=== PATIENT | female | born 1945 | race Caucasian/White ===

== ENCOUNTER 2019-11-22 02:33 | Observation (INO) | payer MEDICARE, OTHER, SELFPAY ==
[2019-11-22] VITALS (15 sets, daily range): BP systolic 127–153; BP diastolic 79–92; PULSE 77–92; RESP 15–20; TEMP 36.4–36.9; O2SAT 90–98; BMI 46.1
--- NOTE | 2019-11-22 02:42 | XRR_ITS ---
PROCEDURE INFORMATION: Exam: XR Chest, 1 View Exam date and time: 11/22/2019 2:47 AM Age: 73 years old Clinical indication: Injury or trauma; Initial encounter; Blunt trauma (contusions or hematomas); Patient HX: Fall this a. M. C/O severe shoulder pain. ; Additional info: Fall/injury TECHNIQUE: Imaging protocol: XR of the chest Views: 1 view. COMPARISON: No relevant prior studies available. FINDINGS: Lungs: No consolidation. Pleural space: No pleural effusion. No pneumothorax. Heart/Mediastinum: Cardiomegaly. Bones/joints: Anterior left shoulder dislocation with comminuted fracture of the proximal left humerus. XR/XR chest 1V portable [id number] IMPRESSION: 1. Clear lungs. 2. Anterior left shoulder dislocation with comminuted fracture of the proximal left humerus.
--- NOTE | 2019-11-22 02:42 | XRR_ITS ---
PROCEDURE INFORMATION: Exam: XR Left Shoulder Exam date and time: 11/22/2019 2:47 AM Age: 73 years old Clinical indication: Injury or trauma; Initial encounter; Blunt trauma (contusions or hematomas; Left; Patient HX: Fall this a. M. C/O severe shoulder pain. ; Additional info: Fall/injury TECHNIQUE: Imaging protocol: XR Left shoulder. Views: 2 or more views. COMPARISON: No relevant prior studies available. FINDINGS: Bones/joints: Comminuted fracture of the humeral head with anterior left shoulder dislocation. Soft tissues: No radiopaque foreign body. XR/XR shoulder LT min 2V* [id number] IMPRESSION: Comminuted fracture of the humeral head with anterior left shoulder dislocation.
--- NOTE | 2019-11-22 02:42 | XRR_ITS ---
PROCEDURE INFORMATION: Exam: XR Left Humerus Exam date and time: 11/22/2019 2:47 AM Age: 73 years old Clinical indication: Injury or trauma; Initial encounter; Blunt trauma (contusions or hematomas; Left; Patient HX: Fall this a. M. C/O severe shoulder pain. ; Additional info: Fall/injury TECHNIQUE: Imaging protocol: XR Left humerus Views: 2 or more views. COMPARISON: No relevant prior studies available. FINDINGS: Bones/joints: Comminuted left humeral head fracture. Soft tissues: No edema. XR/[place] [id number] IMPRESSION: Comminuted left humeral head fracture.
--- NOTE | 2019-11-22 02:43 | CTR_ITS ---
PROCEDURE INFORMATION: Exam: CT Head Without Contrast Exam date and time: 11/22/2019 2:47 AM Age: 73 years old Clinical indication: Injury or trauma; Patient HX: Fall this a. M. Patient on blood thinners; Additional info: Fall/injury/anticoagulated TECHNIQUE: Imaging protocol: Computed tomography of the head without contrast. Radiation optimization: All CT scans at this facility use at least one of these dose optimization techniques: automated exposure control; mA and/or kV adjustment per patient size (includes targeted exams where dose is matched to clinical indication); or iterative reconstruction. COMPARISON: No relevant prior studies available. RADIATION DOSE METRICS: Total DLP (mGy-cm): 975.76 FINDINGS: Brain: No hemorrhage. No edema, mass effect or midline shift. Periventricular and deep white matter hypodensities compatible with chronic microvascular ischemic changes. Sims-white matter differentiation is preserved. Ventricles: No ventriculomegaly. Bones/joints: No acute fracture. Sinuses: No acute sinusitis. Mastoid air cells: No mastoid effusion. Soft tissues: Unremarkable. CT/CT head wo con* [id number] IMPRESSION: No acute intracranial abnormality. Radiation Dose CTDIVOL = (mGy): DLP = 975.76 (mGy-cm)
--- NOTE | 2019-11-22 02:59 | W.ED.FALL ---
HPI - Fall General: Chief Complaint: Fall Stated Complaint: fall Time Seen by Provider: 11/22/19 02:38 Source: patient, family and EMS Mode of arrival: EMS Limitations: no limitations History of Present Illness: HPI Narrative: Ms. Arredondo is a nice 73-year-old female who comes in complaining of left shoulder pain. She states she got up tonight to go to the bathroom and then tripped on the dog dish causing her to fall down and landed on her left shoulder. She had immediate pain thereafter and has not been able to resolve the pain. She is unable to move her shoulder without extreme pain. She hit her head but denies any loss of consciousness. She denies any neck pain. She denies any pain to her chest or torso. She states all of her pain is located in her left shoulder. The patient is on Eliquis. Associated symptoms-after fall: Denies abdominal pain, chest pain, confusion, difficulty walking, headache(s), hematuria, lightheadedness, neck pain or vertigo Review of Systems Const: Denies: fever(s), chills, body aches, fatigue, malaise or diaphoresis Eyes: Denies: change in vision, blurry vision, blind spots, photophobia, eye discharge or eye redness ENMT: Denies: throat pain, odynophagia, hoarseness, swelling of lips/tongue, oral sores, ear or mastoid pain, ear discharge, change in hearing or nasal discharge Card: Denies: chest pain, palpitations, irregular heart rhythm, edema, lightheadedness, syncope, pre-syncope, dyspnea on exertion or orthopnea Resp: Denies: dyspnea, productive cough, non-productive cough, wheezing, hemoptysis or chest congestion GI: Denies: abdominal pain, nausea, vomiting, hematemesis, coffee ground emesis, heartburn, diarrhea, constipation, GI cramping, hematochezia or melena : Denies: flank pain, dysuria, urinary frequency, urinary urgency or hematuria Musc: Reports: joint pain; Denies: neck pain, back pain, extremity pain, extremity swelling, joint swelling, joint redness, joint warmth or joint stiffness Skin/Breast: Denies: rash, pruritus, erythema, skin tenderness or jaundice Neuro: Denies: headache(s), numbness in extremities, weakness in extremities, sensory changes, lack of coordination, difficulty walking, dizziness, vertigo, confusion, Slurred speech present or seizure-like activity Gilson/Lymph: Denies: easy bruising, easy bleeding, petechiae, purpura or enlarged lymph nodes All/Imm: Denies: urticaria, throat swelling, tongue swelling, facial swelling or acute wheezing PFSH ED PFSH: Medical History (Updated 11/22/19 @ 04:33 by Veronica Valera) Breast cancer Colostomy present Diverticulosis Hypertension Hypothyroidism Pulmonary emboli Social History Smoking and tobacco status: never smoked Physical Exam Const: COMMON NORMALS: no acute distress, patient oriented x3, no limitations, healthy appearing and well nourished GENERAL APPEARANCE: cooperative, well kempt and well developed HENMT: COMMON NORMALS: normocephalic, atraumatic, external ears normal, EAC's normal and Normal external nose present HEAD & SCALP: normal to inspection, normocephalic and atraumatic FACE & SINUS: normal facial exam and face symmetric NOSE: Normal external nose present and Normal nares present EXTERNAL EAR: Yes external ears normal EXTERNAL AUDITORY CANAL: EAC's normal MOUTH: Normal oral and palatal mucosa present, lip normal and tongue normal Eye: COMMON NORMALS: Equal, round and reactive pupils present and conjunctivae normal GENERAL EYE: appearance normal, both eyes and all related structures ALIGNMENT: Yes alignment normal PERIORBITAL: periorbital findings normal EYELID: eyelids normal CONJUNCTIVA: Yes conjunctivae normal SCLERA: sclerae normal PUPIL: Yes Equal, round and reactive pupils present Neck/C-Spine: COMMON NORMALS: full ROM, no lymphadenopathy, supple, no meningeal signs and no JVD GENERAL: Yes normal visual inspection and Yes trachea midline Chest: COMMONS NORMALS: normal inspection of the chest and normal palpation of entire chest wall Resp: COMMON NORMALS: normal respiratory effort, No retractions and No use of accessory muscles EFFORT & INSPECTION: Yes able to speak in complete sentences and Yes symmetric chest movement AUSCULTATION: no crackles, no rales, no rhonchi and no wheezes Cardio: COMMON NORMALS: no JVD, regular rate, regular rhythm, S1 normal heart sound present and S2 normal heart sound present RATE: regular rate RHYTHM: regular rhythm HEART SOUNDS: S1 normal heart sound present, S2 normal heart sound present, no click, no gallops, no murmurs, no rubs and abnormal split S2 GI: COMMON NORMALS: Soft to palpation and No hepatosplenomegaly present PALPATION: Yes Soft to palpation, No Tenderness to palpation present (GI), No Guarding due to palpation present (GI), No Rigid due to palpation, Yes No hepatosplenomegaly present, No Hernia present, No Palpable mass present and No Pulsatile mass present : COMMON NORMALS: Yes no CVA tenderness BLADDER/KIDNEY EXAM: Yes no CVA tenderness EXTERNAL FEMALE EXAM: No Hernia present Back/Pelvis: COMMON NORMALS: no CVA tenderness, thoracic and lumbar spine normal to inspection, no thoracic nor lumbar tenderness and thoraco-lumbar ROM normal Extremity: COMMON NORMALS: capillary refill normal NARRATIVE EXTREMITY EXAM: Left shoulder with severe tenderness to palpation. Neurovascularly intact distal to the shoulder all the way to the wrist and hand. The remainder of the patient's musculoskeletal exam is normal and unremarkable. Neuro: COMMON NORMALS: patient oriented x3, CN's II-XII intact bilaterally, moves all extremities, no focal motor deficits and no sensory deficits noted MENINGEAL SIGNS: Yes no meningeal signs SPEECH: speech normal Psych: COMMON NORMALS: mental status grossly normal, Normal thought process present, cooperative, normal affect, speech normal and activity/motor behavior normal APPEARANCE: Yes well kempt SPEECH: Yes normal speech THOUGHT PROCESS: Normal thought process present Skin: COMMON NORMALS: no rashes or lesions noted, turgor normal, no jaundice, no petechiae and no mottling GENERAL SKIN EXAM: no rashes or lesions noted and turgor normal Course Vital Signs: Vital signs: Vital Signs Temperature 97.6 F 11/22/19 02:37 Pulse Rate 84 11/22/19 04:12 Respiratory Rate 15 11/22/19 04:12 Blood Pressure 130/84 11/22/19 04:12 Pulse Oximetry 94 11/22/19 04:12 MDM - Fall MDM Narrative: Medical decision making narrative: Ms. Arredondo is a nice 73-year-old female who comes in after mechanical fall at home. She has a comminuted left humeral head fracture with dislocation. I reviewed this with Dr. Ojeda states the patient will have to have definitive surgery for this. She will need to be off her Eliquis 48 hours but secondary to the patient's nausea and upset stomach yesterday she is already been 24 hours without her Eliquis. I have endorsed the case to Dr. Taylor and he will come to admit the patient. Lab Data: Labs: Lab Results 11/22/19 11/22/19 11/22/19 Range/Units 03:10 03:10 03:10 WBC 9.9 (4.0-10.0) 10^3/ uL RBC 4.09 L (4.1-5.3) 10^6/u L Hgb 13.9 (11.5-15.3) g/dL Hct 42.9 (37.0-47.0) % MCV 104.9 H (81-99) fL MCH 34.0 (28.0-34.0) pg MCHC 32.4 (30.0-36.0) g/dL RDW 12.5 (12.1-15.1) % Plt Count 119 L (130-400) 10^3/c mm MPV 11.1 H (7.4-10.4) fL Neut % (Auto) 82.7 % Lymph % (Auto) 7.8 % [place] % (Auto) 7.7 % Eos % (Auto) 0.9 % Baso % (Auto) 0.3 % Neut # (Auto) 8.2 H (1.8-7.7) 10^3/u L Lymph # (Auto) 0.8 (0.8-4.8) 10^3/u L [place] # (Auto) 0.8 (0.2-0.9) 10^3/u L Eos # (Auto) 0.1 (0.0-0.8) 10^3/u L Baso # (Auto) 0.0 (0.0-0.1) 10^3/u L Nucleated RBC % (a uto) 0 % Nucleated RBCs # 0.0 /100WBC PT 13.70 H (10.5-13.3) SECO NDS INR 1.02 (0.8-1.2) APTT 24.2 (23.9-36.7) SECO NDS Sodium 141 (136-145) mmol/L Potassium 3.6 (3.5-5.1) mmol/L Chloride 107 (98-107) mmol/L Carbon Dioxide 21 L (22-29) mmol/L Anion Gap 16.6 (5-19) BUN 12 (8-23) mg/dL Creatinine 0.8 (0.5-0.9) mg/dL Glucose 141 H (65-115) mg/dL Calculated Osmolal ity 290 (285-295) mOsm/k g Calcium 9.6 (8.5-10.5) mg/dL Total Bilirubin 0.5 (0.15-1.2) mg/dL AST 28 (0-32) U/L ALT 17 (0-33) U/L Alkaline Phosphata se 74 (35-105) IU/L Total Protein 6.7 (6.6-8.7) g/dL Albumin 3.6 (3.5-5.2) g/dL Globulin 3.1 (1.3-4.6) g/dL Imaging Data^: CT Head: Radiologist's impression: [address] [address] [address] Scan Report Signed Patient: Clara Arredondo Unit #: [id number] : 1945 Age/Sex: 73 / F ADM Date: 11/22/19 Loc: ER Room/Bed: Attending Dr: Ordering Provider/Ordering MD: Veronica Valera DO Date of Service: 11/22/19 Procedure(s): CT head wo con* [id number] Accession Number(s): [id number] Report Number: [id number] PROCEDURE INFORMATION: Exam: CT Head Without Contrast Exam date and time: 11/22/2019 2:47 AM Age: 73 years old Clinical indication: Injury or trauma; Patient HX: Fall this a. M. Patient on blood thinners; Additional info: Fall/injury/anticoagulated TECHNIQUE: Imaging protocol: Computed tomography of the head without contrast. Radiation optimization: All CT scans at this facility use at least one of these dose optimization techniques: automated exposure control; mA and/or kV adjustment per patient size (includes targeted exams where dose is matched to clinical indication); or iterative reconstruction. COMPARISON: No relevant prior studies available. RADIATION DOSE METRICS: Total DLP (mGy-cm): 975.76 FINDINGS: Brain: No hemorrhage. No edema, mass effect or midline shift. Periventricular and deep white matter hypodensities compatible with chronic microvascular ischemic changes. Sims-white matter differentiation is preserved. Ventricles: No ventriculomegaly. Bones/joints: No acute fracture. Sinuses: No acute sinusitis. Mastoid air cells: No mastoid effusion. Soft tissues: Unremarkable. CT/CT head wo con* [id number] IMPRESSION: No acute intracranial abnormality. Radiation Dose CTDIVOL = (mGy): DLP = 975.76 (mGy-cm) Dictated By: Lindsay Link MD Signed By: Lindsay Link MD Signed Date/Time: 11/22/19350 DD/ 9 Discharge Plan Discharge Patient Disposition: Placed in Observation Clinical Impression: Dislocation of shoulder region Qualifiers: Encounter type: initial encounter Laterality: left Qualified Code(s): S43.005A - Unspecified dislocation of left shoulder joint, initial encounter Fracture of head of humerus Qualifiers: Encounter type: initial encounter Fracture type: closed Laterality: left Qualified Code(s): S42.292A - Other displaced fracture of upper end of left humerus, initial encounter for closed fracture Condition: Stable Coding Level of Care Code 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
[2019-11-22] MEDS: morphine 4 mg/mL SDV 1 mL IVP ×2 (03:02→10:59)
[2019-11-22] MEDS: ondansetron 2 mg/ML SDV 2 mL 4 MG IVP (03:02)
[2019-11-22] MEDS: sodium chloride 0.9% 1,000 ML 100 ML IV (03:03)
[2019-11-22 03:15] LABS: Basophils % 0.3 %; Eosinophils # 0.1 10^3/uL (0.0-0.8); Eosinophils % 0.9 %; Hematocrit 42.9 % (37.0-47.0); Hemoglobin 13.9 g/dL (11.5-15.3); Lymphocytes # 0.8 10^3/uL (0.8-4.8); Lymphocytes % 7.8 %; Mean Corpuscular HGB Conc 32.4 g/dL (30.0-36.0); Mean Corpuscular Volume 104.9 fL (81-99); Mean Platelet Volume 11.1 fL (7.4-10.4); Monocytes # 0.8 10^3/uL (0.2-0.9); Monocytes % 7.7 %; Neutrophils # 8.2 10^3/uL (1.8-7.7); Neutrophils % 82.7 %; Nucleated Red Blood Cells % 0 %; Platelet Count 119 10^3/cmm (130-400); Red Blood Count 4.09 10^6/uL (4.1-5.3); Red Cell Distribution Width 12.5 % (12.1-15.1); White Blood Count 9.9 10^3/uL (4.0-10.0)
[2019-11-22 03:38] LABS: Alanine Aminotransferase 17 U/L (0-33); Albumin Level 3.6 g/dL (3.5-5.2); Alkaline Phosphatase 74 IU/L (35-105); Anion Gap 16.6 (5-19); Aspartate Amino Transferase 28 U/L (0-32); Blood Urea Nitrogen 12 mg/dL (8-23); Calcium 9.6 mg/dL (8.5-10.5); Carbon Dioxide 21 mmol/L (22-29); Chloride 107 mmol/L (98-107); Globulin 3.1 g/dL (1.3-4.6); Glucose 141 mg/dL (65-115); Osmolality Calculated 290 mOsm/kg (285-295); Potassium 3.6 mmol/L (3.5-5.1); Sodium 141 mmol/L (136-145); Total Bilirubin 0.5 mg/dL (0.15-1.2); Total Protein 6.7 g/dL (6.6-8.7)
[2019-11-22] MEDS: morphine 4 mg/mL SDV 1 mL 6 MG IVP (03:38)
[2019-11-22 03:52] LABS: INR 1.02 (0.8-1.2)
[2019-11-22 03:53] LABS: Partial Thromboplastin Time 24.2 SECONDS (23.9-36.7)
--- NOTE | 2019-11-22 04:33 | CTR_ITS ---
PROCEDURE INFORMATION: Exam: CT Left Upper Extremity Without Contrast, Shoulder Exam date and time: 11/22/2019 4:36 AM Age: 73 years old Clinical indication: Injury or trauma; Fall; Initial encounter; Blunt trauma (contusions or hematomas; Shoulder; Left TECHNIQUE: Imaging protocol: CT of the Left upper extremity without contrast was performed. Exam focused on the shoulder. Radiation optimization: All CT scans at this facility use at least one of these dose optimization techniques: automated exposure control; mA and/or kV adjustment per patient size (includes targeted exams where dose is matched to clinical indication); or iterative reconstruction. COMPARISON: CR XR shoulder LT min 2V* [id number] 11/22/2019 2:46 AM RADIATION DOSE METRICS: Total DLP (mGy-cm): 2357.28 FINDINGS: Bones/joints: Comminuted fracture of the left humeral head and neck associated with mild impaction and at least mild anterior angulation. Acute fracture of the anterior glenoid with minimal depression of the fracture fragment. Widening of the superior aspect of the glenohumeral joint, but no dislocation of the proximal humerus. Degeneration of the AC joint. No acute fracture of the upper left ribs. Soft tissues: Edema/bruising in the upper left shoulder. Vasculature: Prominent left coronary artery calcifications. Lungs: Several small nodules in the left lung containing no apparent calcification, the largest measuring 8 mm. Increased interstitial markings and slight patchy haziness in the left lung also. CT/CT shoulder LT wo con* [id number] IMPRESSION: 1. Comminuted fracture of the proximal left humerus as described above. Minimally depressed fracture of the anterior glenoid, also. Widening of the superior aspect of the glenohumeral joint, but no dislocation of this joint. 2. Several left lung nodules and increased interstitial markings and slight patchy haziness in the left lung of uncertain significance. Consider a follow-up chest CT scan for further evaluation if no recent chest CT has been performed. Radiation Dose CTDIVOL = (mGy): DLP = 2357.28 (mGy-cm)
--- NOTE | 2019-11-22 04:53 | PM.HP ---
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 Last night she felt an episode of nausea, and went to the restroom in the camper because she thought she was going to vomit. The restaurant was occupied, and so she turned around to go towards the same, but tripped on a dog bowl and fell down on her left shoulder was subsequently severe pain and difficulty moving her arm. Her nausea subsequently went away without any recurrence. In ER she is noted to have dislocation and fracture of proximal left humerus. She is in significant pain as well. She is placed in observation for pain control and orthopedic assessment. Review of Systems Const: Denies: fever(s), chills, body aches or malaise Eyes: Denies: change in vision or eye redness ENMT: Denies: throat pain, oral sores or ear or mastoid pain Card: Denies: chest pain, edema, pre-syncope or dyspnea on exertion Resp: Reports: dyspnea (He has been somewhat more short of breath recently, possibly from metastatic disease as there has been some progression of her cancer. She has not been on oxygen thus far, but thinks she may need some and was going to discuss that with her primary care doctor.); Denies: productive cough, change in phlegm color or hemoptysis GI: Denies: abdominal pain, nausea, vomiting, diarrhea, constipation, hematochezia or melena : Denies: flank pain, urinary frequency or hematuria Musc: Reports: joint pain (L shoulder); Denies: back pain, joint swelling or joint redness Skin/Breast: Denies: rash, sores or new lesions Neuro: Denies: headache(s), numbness in extremities, weakness in extremities, dizziness, confusion or seizure-like activity Endo: Denies: polyuria or polydipsia Gilson/Lymph: Denies: easy bleeding or purpura All/Imm: Denies: urticaria, throat swelling or tongue swelling Medications/Allergies Home Medications Medication Instructions Recorded Confirmed Last Taken Type apixaban [Eliquis] 5 mg PO BID 11/22/19 11/22/19 11/21/19 20:00 History fluoxetine 40 mg PO DAILY 11/22/19 11/22/19 11/21/19 08:00 History levothyroxine [Synthroid] 225 mcg PO DAILY 11/22/19 11/22/19 11/21/19 07:00 History metoprolol succinate 200 mg PO DAILY 11/22/19 11/22/19 11/21/19 08:00 History ondansetron HCl [Zofran] 4 mg PO Q6H PRN 11/22/19 11/22/19 Unknown History ribociclib-letrozole [Kisqali 400 tab PO 11/22/19 Unknown History Femara Co-Pack] Allergies Allergy/AdvReac Type Severity Reaction Status Date / Time hydromorphone [From Dilaudid] Allergy ADR-Shakine Verified 11/22/19 02:46 ss meperidine [From Demerol] Allergy ALGY-Anaphy Verified 11/22/19 02:45 laxis PFSH Acute PFSH: Medical History Breast cancer Colostomy present Diverticulosis With history of colon perforation necessitating colostomy in 2012 Hypertension Hypothyroidism Nephrolithiasis ROSE on CPAP Pulmonary emboli Surgical History History of sleeve gastrectomy 2014 Status post colostomy Family History Father CAD (coronary artery disease) at 56 Social History Smoking and tobacco status: never smoked Alcohol intake: never Substance/Drug Use: never Lives independently: Yes Household members: spouse Housing: Other Details: Currently visiting here from [place], living in a camper Marital status: Current occupational status: retired Vitals/I&O/Wt Last Vital Signs Temp 97.6 F 11/22/19 02:37 Pulse 84 11/22/19 04:12 Resp 15 11/22/19 04:12 BP 130/84 11/22/19 04:12 Pulse Ox 94 11/22/19 04:12 Weight last 48 hrs Weight 122.016 kg Physical Exam Const: COMMON NORMALS: no acute distress and patient oriented x3 NUTRITIONAL APPEARANCE: obese OTHER: accompanying her in ER. HENMT: COMMON NORMALS: oropharynx normal Neck/C-Spine: COMMON NORMALS: no JVD Resp: COMMON NORMALS: normal respiratory effort and clear to auscultation bilaterally AUSCULTATION: clear to auscultation bilaterally Cardio: COMMON NORMALS: no JVD, regular rhythm, S1 normal heart sound present, S2 normal heart sound present and No murmurs present (Cardio) RHYTHM: regular rhythm HEART SOUNDS: S1 normal heart sound present and S2 normal heart sound present GI: COMMON NORMALS: Normal to inspection, nondistended, normoactive bowel sounds present, Soft to palpation and non-tender PALPATION: Yes Soft to palpation Extremity: COMMON NORMALS: no joint enlargement and no pedal edema LEFT UPPER EXTREMITY: Yes shoulder joint Left shoulder joint: Yes other (Painful, tender, unable to move.) Neuro: COMMON NORMALS: patient oriented x3 and moves all extremities Skin: COMMON NORMALS: no rashes or lesions noted GENERAL SKIN EXAM: no rashes or lesions noted Data : 11/22/19 03:10 11/22/19 03:10 A&P Assessment and plan (1) Fracture of head of humerus: After a mechanical fall. With considerable pain. Pending assessment by orthopedics. Could not be reduced in ER due to fracture with the location. Concern for fragile bone. For now Eliquis on hold. Last dose was 11/19. Due to high risk of PE will maintain on heparin which may be held in case of surgical procedure. She is a [employer], and does not accept blood products. At this time shoulder immobilization, pain control. N.p.o. for now. CT of the shoulder was requested by orthopedics. In case of surgical intervention here she would be at elevated risk of complications compared to average due to her comorbidities including stage IV cancer, history of recurrent PE, need for anticoagulation, obesity, age. Not much can be optimized prior to surgery. May need closer monitoring in ICU afterward due to comorbidities. Status: Acute Qualifiers: Encounter type: initial encounter Fracture type: closed Laterality: left Qualified Code(s): S42.292A - Other displaced fracture of upper end of left humerus, initial encounter for closed fracture (2) Dislocation of shoulder region: With concomitant fracture as above. Pending orthopedic assessment. Status: Acute Qualifiers: Encounter type: initial encounter Laterality: left Qualified Code(s): S43.005A - Unspecified dislocation of left shoulder joint, initial encounter (3) Pulmonary emboli: History of recurrent VTE/PE. Maintain anticoagulation, at this time with heparin drip. Normally on Eliquis, last dose was 11/19 evening. Status: Acute (4) Breast cancer: Stage IV breast cancer metastatic to lungs, lymph nodes, liver was on Kisqali Femara up until recently, then switched to hormone therapy after progression of disease noted. Follows with an oncologist in [place]. Status: Acute (5) Dyspnea: Has been having more dyspnea recently. With metastatic disease to the lungs with recent progression. She has not used oxygen up until recently,. She was going [facility] about this with her primary provider. May benefit from home O2 evaluation prior to discharge. Status: Acute (6) ROSE on CPAP: Continue CPAP. Status: Acute (7) Colostomy present: Status: Acute (8) Hypothyroidism: Levothyroxine Status: Acute (9) Hypertension: Blood pressure at goal currently. Monitor. Status: Acute Attestations Medical Necessity Statement*: Place in observation pending additional orthopedic assessment and plans for definitive treatment. 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
[2019-11-22] MEDS: heparin drip 25,000 UNIT/500 ML PREMIX 34.2 UNIT IV (07:04)
[2019-11-22] MEDS: heparin 5,000 unit/mL INJ 1 mL IV (07:05)
[2019-11-22] MEDS: dextrose 5%-sod chloride 0.45% 1,000 ML 100 ML IV (07:09)
--- NOTE | 2019-11-22 08:55 | PC.NURSE ---
PT/OT Eval and Treat Verbal order from Dr. Rodarte for shoulder immobilizer. This nurse spoke with Vinicius Infante PT about order. He informed me that OT should be consulted on this as well.
[2019-11-22] MEDS: fluoxetine 20 mg Capsule 40 MG PO (09:58)
[2019-11-22] MEDS: levothyroxine 25 mcg Tablet PO (09:58)
[2019-11-22] MEDS: levothyroxine 100 mcg Tablet 200 MCG PO (09:58)
[2019-11-22] MEDS: apixaban 5 mg Tablet PO ×2 (11:00→17:25)
--- NOTE | 2019-11-22 11:31 | PC.CHAP ---
Pastoral Care Encounter/Spiritual Assessment Type of Contact [] Declined record filing clerk visit [] Patient/Family/Request visit [] Outpatient visit [] Follow-up visit [] Physician referral [] Code/Alert [X] Routine visit [] Staff referral [] Actively dying [] Patient sleeping [] Family support [] [] Out of room [] Palliative care [] [] Receiving care in room [] Pre-surgical visit [] Trauma [] Long length of stay [] ICU visit [] Other: Relational/Emotional Strength [X] Patient feels connected with others/family/visitors/staff [] Distress [] Loneliness/isolation [] Abandonment Spirituality of Patient [] Person of Ila [] Attends Episcopal of their Ila [] Believes in Prayer [] Reads Bible or Restoration materials [] There are Spiritual issues to be addressed 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 [] Prayer [X] Active listening [] Non-anxious presence [] Spiritual/emotional support [] Crisis/trauma care [] Spiritual counseling [] Bereavement support [] Provided bereavement packet [] Provided Bible/devotional materials [] Provided toy/stuffed animal, coloring book to patient or family member [] Provided Communion [] Anointing/[place] [] Salvation [] Completed spiritual assessment [] Other: Impact on Illness or Injury [] Angry [] Fearful [] Anxious [] Often cries [] Exhaustion [] Unable to work [] Unable to attend roman catholic [] Unable to walk/stand [] Unable to read [] Unable to drive [] Unable to eat/drink [] Unable to sleep [] Unable to be with family [] Patient intubated [] Other: Summary: Pastoral care visit attempted twice. First time was interrupted by OT. Second time, patient was sleeping and nurse said that she was to be discharged. Time spent with patient: 5 mins
--- NOTE | 2019-11-22 12:02 | P.CONIM_ITS ---
Providers/Reason For Consult Consulting Physican/Specialty*: Clara Rodarte MD?orthopedics Reason for Consult*: Comminuted left shoulder humeral head and glenoid fractures Requesting Physcian: Dr. Veronica Valera-emergency department Attending Physician: Linda Patel MD History of Present Illness History of Present Illness Clara Arredondo is a 73 year old female who is a resident of [place]. The patient was visiting here [facility] [place] when she became nauseated. She attempted to go to the restroom in their camper, but it was occupied. When she turned, she fell onto her left upper extremity. She has multiple comorbidities including breast cancer which is metastatic, and for this, she is currently on palliative hormone therapy. She has a history of recurrent blood clots with PE and is chronically on anticoagulation with Eliquis. She last took this the day prior to admission. Initially, in the emergency department, the patient was felt to have a dislocation as well as humeral head fracture. After discussion with Dr. Valera, I requested a CT scan. This demonstrated no evidence of dislocation. She was admitted under observation for pain management and plans are that she would likely be returned to [place] for definitive care. Review of Systems Const: Denies: fever(s) or chills Eyes: Denies: change in vision Card: Denies: chest pain or dyspnea on exertion Resp: Denies: dyspnea or productive cough GI: Denies: abdominal pain Musc: Reports: joint pain (Left shoulder) Skin/Breast: Denies: erythema or changes in skin color Neuro: Denies: numbness in extremities Psych: Denies: anxiety or depression Gilson/Lymph: Denies: easy bruising or easy bleeding Meds/Allergies Home Medications and Allergies Home Medications Medication Instructions Recorded Confirmed Last Taken Type apixaban [Eliquis] 5 mg PO BID 11/22/19 11/22/19 11/21/19 20:00 History fluoxetine 40 mg PO DAILY 11/22/19 11/22/19 11/21/19 08:00 History levothyroxine [Synthroid] 225 mcg PO DAILY 11/22/19 11/22/19 11/21/19 07:00 History metoprolol succinate 200 mg PO DAILY 11/22/19 11/22/19 11/21/19 08:00 History ondansetron HCl [Zofran] 4 mg PO Q6H PRN 11/22/19 11/22/19 Unknown History ribociclib-letrozole [Kisqali 400 tab PO 11/22/19 Unknown History Femara Co-Pack] Allergies Allergy/AdvReac Type Severity Reaction Status Date / Time hydromorphone [From Dilaudid] Allergy ADR-Shakine Verified 11/22/19 02:46 ss meperidine [From Demerol] Allergy ALGY-Anaphy Verified 11/22/19 02:45 laxis Current Medications Current Medications Generic Name Dose Route Start Last Admin Trade Name Freq PRN Reason Stop Dose Admin Apixaban 5 mg 11/22/19 10:35 11/22/19 11:00 Eliquis PO 5 mg BID MARISA Administration Fluoxetine HCl 40 mg 11/22/19 09:00 11/22/19 09:58 Prozac PO 40 mg DAILY MARISA Administration Levothyroxine Sodium 200 mcg 11/22/19 09:00 11/22/19 09:58 Synthroid PO 200 mcg DAILY MARISA Administration Levothyroxine Sodium 25 mcg 11/22/19 09:00 11/22/19 09:58 Synthroid PO 25 mcg DAILY MARISA Administration Morphine Sulfate 4 mg 11/22/19 06:08 11/22/19 10:59 Morphine IVP 4 mg Q4H PRN Administration SEVERE PAIN PFSH Acute PFSH: Medical History Breast cancer Colostomy present Diverticulosis With history of colon perforation necessitating colostomy in 2012 Hypertension Hypothyroidism Nephrolithiasis ROSE on CPAP Pulmonary emboli Surgical History History of sleeve gastrectomy 2014 Status post colostomy Family History Father CAD (coronary artery disease) at 56 Social History Smoking and tobacco status: never smoked Alcohol intake: never Substance/Drug Use: never Lives independently: Yes Household members: spouse Housing: Other Details: Currently visiting here from [place], living in a camper Marital status: Current occupational status: retired Vitals/I&O/Wt Last Vital Signs Temp 97.6 F 06/20/20 06:08 Pulse 88 11/22/19 11:23 Resp 18 11/22/19 10:59 BP 148/79 11/22/19 11:23 Pulse Ox 90 11/22/19 11:23 11/21/19 11/22/19 11/22/19 22:59 06:59 14:59 Intake Total 112.86 / 112.86 Output Total 300 / 300 Balance -187.14 / -187.14 Weight last 48 hrs Weight 269 lb Physical Exam Const: COMMON NORMALS: no acute distress, patient oriented x3 and alert GENERAL APPEARANCE: cooperative and comfortable NUTRITIONAL APPEARANCE: obese ORIENTATION/CONSCIOUSNESS: Yes awake HENMT: COMMON NORMALS: normocephalic and atraumatic HEAD & SCALP: normocephalic and atraumatic Eye: GENERAL EYE: appearance normal, both eyes and all related structures Chest: COMMONS NORMALS: normal inspection of the chest Resp: COMMON NORMALS: normal respiratory effort EFFORT & INSPECTION: Yes able to speak in complete sentences and Yes symmetric chest movement Extremity: LEFT UPPER EXTREMITY: Yes shoulder joint (Pain and tenderness to palpation.) Left shoulder joint: Yes ROM (Not attempted secondary to fracture.) Neuro: COMMON NORMALS: patient oriented x3 SENSORIUM/ORIENTATION: Yes alert Psych: COMMON NORMALS: mental status grossly normal APPEARANCE: Yes grossly normal ATTITUDE: Yes calm and Yes engaged ATTENTION/CONCENTRATION: Yes attention grossly intact Skin: COMMON NORMALS: no rashes or lesions noted GENERAL SKIN EXAM: no rashes or lesions noted Data Imaging^: Other CT: I personally reviewed and interpreted this imaging study as follows: My impression: CT scan of the left shoulder demonstrates the comminuted proximal left humerus fracture that is visualized on x-ray. There is no dislocation noted on the CT scan. Xray Ortho: My impression: There is a comminuted left humeral head fracture with inferior subluxation of the humeral head but no evidence of wisam dislocation. Radiologist's impression: Comminuted fracture of the humeral head with anterior left shoulder dislocation. A&P Assessment and plan (1) Fracture of head of humerus: The patient has a comminuted humeral head fracture which will require prosthetic replacement as a treatment for this. This is associated with an inferior glenoid fracture which will also need to be addressed at the time of shoulder prosthetic replacement. The patient is from [place], and given that she is neurologically intact and there is no dislocation of the shoulder, plans are that she will return to [place]. She is chronically on Eliquis, and she will discuss with her primary care who he would like her to see that would be a shoulder specialist in [place]. Also, she will need to come off her Eliquis prior to any sort of surgical intervention. This is discussed with the patient as well. Status: Acute Qualifiers: Encounter type: initial encounter Fracture type: closed Laterality: left Qualified Code(s): S42.292A - Other displaced fracture of upper end of left humerus, initial encounter for closed fracture (2) Fracture of glenoid cavity of left scapula: Status: Acute Qualifiers: Encounter type: initial encounter Fracture type: closed Fracture alignment: displaced Qualified Code(s): S42.142A - Displaced fracture of glenoid cavity of scapula, left shoulder, initial encounter for closed fracture Consult Attestations Medical Necessity Statement: Patient was brought in under observation status secondary to uncontrollable pain. 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
--- NOTE | 2019-11-22 14:27 | PC.PT ---
PT note; OT provided immobilizer for patient; patient declines PT needs at this time, stating going home soon.
--- NOTE | 2019-11-22 16:20 | P.PN_ITS ---
Subjective Subjective: Interval history: Chart reviewed, patient being fitted with shoulder immobilizer during my AM visit, desaturates when sleeping but compensates quickly once awakened. Is requiring some supplemental oxygen support to maintain her sats. Very uncomfortable in bed. Case discussed with Dr. Rodarte who recommended shoulder immobilizer. Patient reassessed in the afternoon and continues to complain of significant pain, not comfortable leaving the hospital quite yet particularly with long road trip back to [place] ahead. Wants pain to be better managed before going home. Resumed Eliquis and discontinued heparin drip as no immediate surgical intervention. Started on diet as well. Medications: Reviewed: Yes Medication Review Details: Active Medications Generic Name Dose Route Start Last Admin Trade Name Freq PRN Reason Stop Dose Admin Acetaminophen 650 mg 11/22/19 06:08 Tylenol PO Q6H PRN Mild/Mod Pain Or Temp >/= 101 Apixaban 5 mg 11/22/19 10:35 11/22/19 11:00 Eliquis PO 5 mg BID MARISA Administration Fluoxetine HCl 40 mg 11/22/19 09:00 11/22/19 09:58 Prozac PO 40 mg DAILY MARISA Administration Levothyroxine Sodi um 200 mcg 11/22/19 09:00 11/22/19 09:58 Synthroid PO 200 mcg DAILY MARISA Administration Levothyroxine Sodi um 25 mcg 11/22/19 09:00 11/22/19 09:58 Synthroid PO 25 mcg DAILY MARISA Administration Morphine Sulfate 4 mg 11/22/19 06:08 11/22/19 10:59 Morphine IVP 4 mg Q4H PRN Administration SEVERE PAIN Ondansetron HCl 4 mg 11/22/19 06:08 Zofran PO Q6H PRN nausea Ondansetron HCl 4 mg 11/22/19 06:08 Zofran IVP Q8H PRN vomiting, or N/V if npo Oxycodone/Acetamin ophen 1 - 2 tab 11/22/19 12:45 Percocet 5-325 M g PO Q4H PRN MODERATE TO SEVER E PAIN hydromorphone [From Dilaudid] Allergy (Verified 11/22/19 02:46) ADR-Shakiness meperidine [From Demerol] Allergy (Verified 11/22/19 02:45) ALGY-Anaphylaxis Vitals/I&O/Wt Last Vital Signs Temp 98.0 F 11/22/19 15:52 Pulse 89 11/22/19 15:52 Resp 19 H 11/22/19 15:52 BP 143/81 11/22/19 15:52 Pulse Ox 92 11/22/19 15:52 11/22/19 11/22/19 11/22/19 06:59 14:59 22:59 Intake Total 352.86 / 352.86 Output Total 300 / 300 Balance 52.86 / 52.86 Weight last 48 hrs Weight 122.016 kg Physical Exam Const: COMMON NORMALS: no acute distress, patient oriented x3 and alert GENERAL APPEARANCE: cooperative; not comfortable NUTRITIONAL APPEARANCE: obese morbidly obese ORIENTAT ION/CONSCIOUSNESS: Yes awake HENMT: COMMON NORMALS: normocephalic, atraumatic, hearing grossly normal bilaterally and moist oral mucous membranes HEAD & SCALP: normocephalic and atraumatic Eye: COMMON NORMALS: Equal, round and reactive pupils present, EOMs intact bilaterally and conjunctivae normal CONJUNCTIVA: Yes conjunctivae normal PUPIL: Yes Equal, round and reactive pupils present Neck/C-Spine: COMMON NORMALS: full ROM GENERAL: Yes normal visual inspection and Yes trachea midline Chest: CHEST: Yes Symmetrical chest wall rise Resp: COMMON NORMALS: normal respiratory effort, No retractions, No use of accessory muscles and clear to auscultation bilaterally EFFORT & INSPECTION: Yes able to speak in complete sentences, Yes symmetric chest movement and No ta chypneic AUSCULTATION: clear to auscultation bilaterally OTHER: -on 2-3 L NC, auscultation limited by body habitus; desaturates when sleeping but compensates quickly Cardio: COMMON NORMALS: regular rate, regular rhythm, S1 normal heart sound present, S2 normal heart sound present and No murmurs present (Cardio) RATE: regular rate RHYTHM: regular rhythm HEART SOUNDS: S1 normal heart sound present and S2 normal heart sound present GI: COMMON NORMALS: Normal to inspection, nondistended, normoactive bowel sounds present, Soft to palpation and non-tender INSPECTION: Yes central obes ity PALPATION: Yes Soft to palpation Extremity: COMMON NORMALS: normal to inspection, full ROM, no clubbing, cyanosis or edema and no pedal edema OTHER: -LUE: shoulder immobilizer in place; significant pain with movement; gross sensation intact Neuro: COMMON NORMALS: patient oriented x3, moves all extremities, no focal motor deficits and no sensory deficits noted SENSORIUM/ORIENTATION: Yes alert Psych: COMMON NORMALS: mental status grossly normal, Normal thought process present, cooperative, normal affect and speech normal SPEECH: Yes normal speech THOUGHT PROCESS: Normal thought process present Skin: COMMON NORMALS: no rashes or lesions noted, no jaundice, no petechiae and no mottling GENERAL SKIN EXAM: no rashes or lesions noted Data : 11/22/19 03:10 11/22/19 03:10 A&P Assessment and plan (1) Fracture of head of humerus: -secondary to mechanical fall, landing on her left shoulder -imaging reviewed, comminuted L humeral head fracture -fitted with shoulder immobilizer by OT -Ortho consult by Dr. Aster khan; patient will require prosthetic replacement of shoulder which should would like to pursue in [place] -d/c IVF, start on diet -d/c heparin drip, resume Eliquis -pain control as needed; has been quite challenging so far -VSS; continue to monitor -desaturates while sleeping likely due to ROSE, supplemental oxygen as needed; not oxygen dependent at baseline. Continue to monitor respiratory status Status: Acute Qualifiers: Encounter type: initial encounter Fracture type: closed Laterality: left Qualified Code(s): S42.292A - Other displaced fracture of upper end of left humerus, initial encounter for closed fracture (2) ROSE on CPAP: -CPAP qhs Status: Chronic (3) Colostomy present: -colostomy secondary to diverticular disease with colon perforation (2012) -colostomy care as needed Status: Chronic (4) Breast cancer: -has stage IV breast cancer with metastases to lungs, lymph nodes, liver -on palliative hormonal therapy -f/u with oncologist in [place] Status: Chronic Qualifiers: Breast location: unspecified site of breast Estrogen receptor status: unspecified Patient sex: female Laterality: unspecified laterality Qualified Code(s): C50.919 - Malignant neoplasm of unspecified site of unspecified female breast (5) Diverticulosis: Status: Chronic (6) Pulmonary emboli: -hx of recurrent DVT/PE -resumed Eliquis as no surgery at this time Status: Chronic Qualifiers: Pulmonary embolism type: unspecified Chronicity: chronic Acute cor pulmonale presence: unspecified Qualified Code(s): I27.82 - Chronic pulmonary embolism (7) Hypothyroidism: -on levothyroxine Status: Chronic Qualifiers: Hypothyroidism type: unspecified Qualified Code(s): E03.9 - Hypothy roidism, unspecified (8) Hypertension: -VSS; continue to monitor -continue oral antihypertensives Status: Chronic Qualifiers: Hypertension type: essential hypertension Qualified Code(s): I10 - Essential (primary) hypertension (9) Morbid obesity: -BMI-46 kg/m2 Status: Chronic Additional A&P Information -Thombocytopenia; no labs to compare; repeat labs in AM -DVT ppx not needed as on Eliquis -Dispo: home -Code status: FULL code Attestations Medical Necessity Statement*: Patient requires hospitalization for continued pain control given fall with subsequent left humeral head fracture, continues to require some supplemental oxygen support and is not oxygen dependent at baseline. Time Spent in Patient Care: Greater than 35 minutes (>than 50% of time spent in counselling and/or direct pt care on unit) . 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 [employer] Diagnoses Fracture of head of humerus S42.292A Encounter type: initial encounter Fracture type: closed Laterality: left ROSE on CPAP G47.33; Z99.89 Colostomy present Z93.3 Breast cancer C50.919 Breast location: unspecified site of breast Estrogen receptor status: unspecified Patient sex: female Laterality: unspecified laterality Diverticulosis K57.90 Pulmonary emboli I27.82 Pulmonary embolism type: unspecified Chronicity: chronic Acute cor pulmonale presence: unspecified Hypothyroidism E03.9 Hypothyroidism type: unspecified Hypertension I10 Hypertension type: essential hypertension Morbid obesity E66.01
[2019-11-22] MEDS: oxyCODONE-APAP 5-325 mg Tablet PO (16:21)
[2019-11-23] VITALS (8 sets, daily range): BP systolic 136–168; BP diastolic 58–109; PULSE 89–107; RESP 18–20; TEMP 36.7–37.2; O2SAT 91–96
[2019-11-23 04:57] LABS: Basophils % 0.2 %; Eosinophils # 0.3 10^3/uL (0.0-0.8); Eosinophils % 5.3 %; Hematocrit 39.8 % (37.0-47.0); Hemoglobin 12.7 g/dL (11.5-15.3); Lymphocytes % 18.3 %; Mean Corpuscular HGB Conc 31.9 g/dL (30.0-36.0); Mean Corpuscular Hemoglobin 34.2 pg (28.0-34.0); Mean Corpuscular Volume 107.3 fL (81-99); Mean Platelet Volume 11.2 fL (7.4-10.4); Monocytes # 0.7 10^3/uL (0.2-0.9); Monocytes % 12.8 %; Neutrophils # 3.6 10^3/uL (1.8-7.7); Nucleated Red Blood Cells % 0 %; Platelet Count 105 10^3/cmm (130-400); Red Blood Count 3.71 10^6/uL (4.1-5.3); Red Cell Distribution Width 12.7 % (12.1-15.1); White Blood Count 5.6 10^3/uL (4.0-10.0)
[2019-11-23 05:18] LABS: Anion Gap 13.9 (5-19); Blood Urea Nitrogen 8 mg/dL (8-23); Calcium 9.2 mg/dL (8.5-10.5); Carbon Dioxide 25 mmol/L (22-29); Chloride 106 mmol/L (98-107); Glucose 127 mg/dL (65-115); Osmolality Calculated 289 mOsm/kg (285-295); Potassium 3.9 mmol/L (3.5-5.1); Sodium 141 mmol/L (136-145)
--- NOTE | 2019-11-23 07:02 | PC.NURSE ---
DURING HOURLY ROUNDING THE PATIENT'S OXYGEN SATURATIONS WERE NOTED TO BE AROUND 84%-86% WHILE RESTING. WHEN AROUSED AND TALKING THEY CLIMBED TO 94%-96%. ORDERS FOR RT TO SET UP CPAP WERE IN THE CHART. AFTER CPAP PLACED THE PATIENT BEGAN RESTING. AT ROUNDING THE OXYGEN SATURATION WAS AGAIN IN THE LOW 80'S. CHARGE NURSE CONSULTED AND JUDGMENT MADE TO ADD 4 LITERS OF OXYGEN TO THE CPAP. WHEN 4L OXYGEN WAS ADDED THE PATIENT BEGAN TO IMPROVE. MAINTAINED SATS AND DENIED SHORTNESS OF BREATH OR COMPLAINTS OF DIFFICULTY OF BREATHING.
[2019-11-23] MEDS: oxyCODONE-APAP 5-325 mg Tablet PO ×2 (08:12→15:48)
[2019-11-23] MEDS: levothyroxine 100 mcg Tablet 200 MCG PO (08:12)
[2019-11-23] MEDS: levothyroxine 25 mcg Tablet PO (08:13)
[2019-11-23] MEDS: fluoxetine 20 mg Capsule 40 MG PO (08:13)
[2019-11-23] MEDS: apixaban 5 mg Tablet PO (08:13)
--- NOTE | 2019-11-23 11:06 | PC.CHAP ---
Pastoral Care Encounter/Spiritual Assessment Type of Contact [] Declined olericulturist visit [] Patient/Family/Request visit [] Outpatient visit [X] Follow-up visit [] Physician referral [] Code/Alert [] Routine visit [] Staff referral [] Actively dying [X] Patient sleeping [] Family support [] [] Out of room [] Palliative care [] [X] Receiving care in room [] Pre-surgical visit [] Trauma [] Long length of stay [] ICU visit [] Other: Relational/Emotional Strength [] Patient feels connected with others/family/visitors/staff [] Distress [] Loneliness/isolation [] Abandonment Spirituality of Patient [] Person of Ila [] Attends Voodoo of their Ila [] Believes in Prayer [] Reads Bible or Mandaeism materials [] There are Spiritual issues to be addressed Asphalt Layer Interventions [] Prayer [] Active listening [] Non-anxious presence [] Spiritual/emotional support [] Crisis/trauma care [] Spiritual counseling [] Bereavement support [] Provided bereavement packet [] Provided Bible/devotional materials [] Provided toy/stuffed animal, coloring book to patient or family member [] Provided Communion [] Anointing/[place] [] Salvation [] Completed spiritual assessment [] Other: Impact on Illness or Injury [] Angry [] Fearful [] Anxious [] Often cries [] Exhaustion [] Unable to work [] Unable to attend bahai [] Unable to walk/stand [] Unable to read [] Unable to drive [] Unable to eat/drink [] Unable to sleep [] Unable to be with family [] Patient intubated [] Other: Summary: I'm concerned about this pt. When i visited with her yesterday (before we were interrupted by OT), she seemed in good spirits, and when i tried to finish yesterday's visit, the nurse said that she was going home. Today, I was surprised to see her in the census. First attempt to visit..she was receiving therapy and did not look well. Second attempt to visit, patient was asleep at her breakfast table. This is a patient who was here on vacation, feel in her RV, and is now in the hospital away from support system (family [place] at campground about 40 mins away and they are all from out of state). Time spent with patient
--- NOTE | 2019-11-23 14:14 | PM.DCS ---
Discharge Providers Date of Admission: 11/22/19 04:31 Date of Discharge: November 23, 2019 Attending Provider at Admission: Bandar Herrera Attending Provider at Discharge: Linda Patel MD Consults: Orthopedic surgery Dr. Clara Rodarte Diagnoses at Discharge Discharge Diagnosis (1) Fracture of head of humerus: Status: Acute Problem details: -secondary to mechanical fall, landing on her left shoulder -imaging reviewed, comminuted L humeral head fracture -fitted with shoulder immobilizer by OT -Ortho consult by Dr. Rodarte appreciated; patient will require prosthetic replacement of shoulder which should would like to pursue in [place] -d/c IVF, tolerating diet -d/c heparin drip, resumed Eliquis -pain control as needed; has been quite challenging so far -VSS; continue to monitor -desaturates while sleeping likely due to ROSE, supplemental oxygen as needed; not oxygen dependent at baseline. 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) (4) Breast cancer: Status: Chronic Problem details: -has stage IV breast cancer with metastases to lungs, lymph nodes, liver -on palliative hormonal therapy -f/u with oncologist in [place] Qualifiers: Breast location: unspecified site of breast Estrogen receptor status: unspecified Laterality: unspecified laterality Patient sex: female Qualified Code(s): C50.919 - Malignant neoplasm of unspecified site of unspecified female breast (5) Diverticulosis: Status: Chronic Problem details: With history of colon perforation necessitating colostomy in 2013 (6) Pulmonary emboli: Status: Chronic Problem details: -hx of recurrent DVT/PE -resumed Eliquis as no surgery at this time Qualifiers: Acute cor pulmonale presence: unspecified Chronicity: chronic Pulmonary embolism type: unspecified Qualified Code(s): I27.82 - Chronic pulmonary embolism (7) Hypothyroidism: Status: Chronic Problem details: -on levothyroxine Qualifiers: Hypothyroidism type: unspecified Qualified Code(s): E03.9 - Hypothyroidism, unspecified (8) Hypertension: Status: Chronic Problem details: -VSS; continue to monitor -continue oral antihypertensives Qualifiers: Hypertension type: essential hypertension Qualified Code(s): I10 - Essential (primary) hypertension (9) Morbid obesity: Status: Chronic Problem details: -BMI-46 kg/m2 Other Information Additional DC diagnoses/information: -Thombocytopenia; no labs to compare; stable platelet count Reason for Visit Reason for Visit: fall Hospital Course Hospital Course: Patient was admitted to the medical surgical floor and orthopedic surgery consulted due to finding of comminuted fracture of left humeral head following a mechanical fall while camping with her . Patient is visiting this area with her but is originally from [place]. Dr. Rodarte saw the patient and recommended shoulder immobilizer as well as prosthetic replacement which patient would like to have done in [place]. As patient does not have any significant dislocation noted, Dr. Rodarte thinks that this is appropriate. Just in case of need for surgical intervention she had had her Eliquis held and was covered with heparin instead. She takes Eliquis secondary to history of PE. She had significant pain warranting quite a high analgesic requirement. She was also noted to require supplemental oxygen which she is not dependent on at baseline. This has since been weaned off and she is stable and saturating in the mid 90s on room air. She has intermittently been quite hypertensive likely secondary to pain, blood pressure is much better controlled and patient will be resumed on her beta-marimar. Once decision has been made not to proceed with surgical intervention in the immediate setting her Eliquis was resumed and heparin discontinued. Her pain is much better controlled today and she is much more comfortable being discharged home. She has been instructed on consistent use of the shoulder immobilizer and need to seek medical attention once she gets to [place] including orthopedic surgery referral. She is aware of need to hold her Eliquis approximately 48 hours prior to surgery once timing is decided. She is tolerating oral intake though appetite has been mediocre. She has been voiding without difficulty. Discharge Summary: -Patient to follow-up with primary care provider once she gets to [place]. She is to be referred to orthopedic surgery for intervention on comminuted fracture of left humeral head. Physical Exam Const: COMMON NORMALS: no acute distress, patient oriented x3 and alert GENERAL APPEARANCE: cooperative; not comfortable NUTRITIONAL APPEARANCE: obese morbidly obese ORIENTATION/CONSCIOUSNESS: Yes awake HENMT: COMMON NORMALS: normocephalic, atraumatic, hearing grossly normal bilaterally and moist oral mucous membranes HEAD & SCALP: normocephalic and atraumatic Eye: COMMON NORMALS: Equal, round and reactive pupils present, EOMs intact bilaterally and conjunctivae normal CONJUNCTIVA: Yes conjunctivae normal PUPIL: Yes Equal, round and reactive pupils present Neck/C-Spine: COMMON NORMALS: full ROM GENERAL: Yes normal visual inspection and Yes trachea midline Chest: CHEST: Yes Symmetrical chest wall rise Resp: COMMON NORMALS: normal respiratory effort, No retractions, No use of accessory muscles and clear to auscultation bilaterally EFFORT & INSPECTION: Yes able to speak in complete sentences, Yes symmetric chest movement and No tachypneic AUSCULTATION: clear to auscultation bilaterally OTHER: -on RA, auscultation limited by body habitus; desaturates when sleeping but compensates quickly Cardio: COMMON NORMALS: regular rate, regular rhythm, S1 normal heart sound present, S2 normal heart sound present and No murmurs present (Cardio) RATE: regular rate RHYTHM: regular rhythm HEART SOUNDS: S1 normal heart sound present and S2 normal heart sound present GI: COMMON NORMALS: Normal to inspection, nondistended, normoactive bowel sounds present, Soft to palpation and non-tender INSPECTION: Yes central obesity PALPATION: Yes Soft to palpation Extremity: COMMON NORMALS: normal to inspection, full ROM, no clubbing, cyanosis or edema and no pedal edema OTHER: -LUE: shoulder immobilizer in place; significant pain with movement; gross sensation intact; noted bruising on upper arm Neuro: COMMON NORMALS: patient oriented x3, moves all extremities, no focal motor deficits and no sensory deficits noted SENSORIUM/ORIENTATION: Yes alert Psych: COMMON NORMALS: mental status grossly normal, Normal thought process present, cooperative, normal affect and speech normal SPEECH: Yes normal speech THOUGHT PROCESS: Normal thought process present Skin: COMMON NORMALS: no rashes or lesions noted, no jaundice, no petechiae and no mottling GENERAL SKIN EXAM: no rashes or lesions noted Discharge Data Data Completed and Pending: Completed Studies During Hospitalization Category Date Time Status CT head wo con* 7 0450 Stat Cat Scan 11/22/19 02:[address] shoulder LT wo con* [id number] Stat Cat Scan 11/22/19 04:33 Completed XR chest 1V medardo ble [id number] Stat Exams 11/22/19 02:42 Completed XR humerus LT 730 60 Stat Exams 11/22/19 02:42 Completed XR shoulder LT mi n 2V* [id number] Stat Exams 11/22/19 02:42 Completed Pending at discharge Category Date Time Status Basic Metabolic P melvina AM LABS Lab 11/24/19 04:00 Ordered Basic Metabolic P melvina AM LABS Lab 11/25/19 04:00 Ordered Complete Blood Co unt w/Auto AM LABS Lab 11/24/19 04:00 Ordered Complete Blood Co unt w/Auto AM LABS Lab 11/25/19 04:00 Ordered Platelet Count Q2 D Lab 11/24/19 04:00 Ordered Platelet Count Q2 D Lab 11/26/19 04:00 Ordered Labs from last 24 hours 11/23/19 11/23/19 04:36 04:36 WBC 5.6 RBC 3.71 L Hgb 12.7 Hct 39.8 MCV 107.3 H MCH 34.2 H MCHC 31.9 RDW 12.7 Plt Count 105 L MPV 11.2 H Neut % (Auto) 63.0 Lymph % (Auto) 18.3 [place] % (Auto) 12.8 Eos % (Auto) 5.3 Baso % (Auto) 0.2 Neut # (Auto) 3.6 Lymph # (Auto) 1.0 [place] # (Auto) 0.7 Eos # (Auto) 0.3 Baso # (Auto) 0.0 Nucleated RBC % (a uto) 0 Nucleated RBCs # 0.0 Sodium 141 Potassium 3.9 Chloride 106 Carbon Dioxide 25 Anion Gap 13.9 BUN 8 Creatinine 0.8 Glucose 127 H Calculated Osmolal ity 289 Calcium 9.2 Vitals: Last Vital Signs Temp 98.9 F 11/23/19 12:00 Pulse 107 H 11/23/19 12:00 Resp 20 H 11/23/19 12:00 BP 141/109 11/23/19 12:00 Pulse Ox 91 11/23/19 12:00 Discharge Plan Discharge Patient Disposition: Home, Self-Care Condition: Stable Prescriptions: New oxycodone-acetaminophen 5-325 mg Tablet 1 - 2 tab PO Q4H PRN (Reason: Moderate To Severe Pain) Qty: 30 RF: 0 No Action levothyroxine [Synthroid] 200 mcg Tablet 225 mcg PO DAILY RF: 0 Zofran 4 mg Tablet 4 mg PO Q6H PRN (Reason: nausea) RF: 0 fluoxetine 40 mg capsule 40 mg PO DAILY RF: 0 Kisqali Femara Co-Pack 400 mg/day(200 mg x 2)-2.5 mg tablet 400 tab PO RF: 0 Eliquis 5 mg tablet 5 mg PO BID RF: 0 metoprolol succinate 200 mg tablet extended release 24 hr 200 mg PO DAILY RF: 0 Discharge Orders: Discharge Order (Routine); Ordered 11/23/19 Ordered By: Linda Patel Referrals: Clara Rodarte MD [Physician] - (Please contact your local primary care for referral to a shoulder specialist in the [place] area. At the latest by the end of this coming week.) Discharge Diet: Low Salt Discharge Activity: Limit activity as instructed Activity Restrictions/Additional Instructions: -Wear shoulder immobilizer at all times. Discharge Attestations Time Spent in Discharge Care*: greater than 30 min Specific Discharge Activities: Specific discharge activities: educating patient, discussing with disability case manager/social workers/dc planners, documenting/other paperwork and evaluating patient/reviewing data Status at Discharge: Cognitive status at discharge: cognitively intact, Behavioral status at discharge: cooperative, Functional status at discharge: independent ambulation Overall status at discharge: patient has a new baseline Quality Metrics Clinical Quality Measures During this hospital stay, did patient experience: None Coding Level of Care Code Acute Advanced Practice Registered Nurse for [facility] Fwd Diagnoses Fracture of head of humerus S42.292A Encounter type: initial encounter Fracture type: closed Laterality: left ROSE on CPAP G47.33; Z99.89 Colostomy present Z93.3 Breast cancer C50.919 Breast location: unspecified site of breast Estrogen receptor status: unspecified Laterality: unspecified laterality Patient sex: female Diverticulosis K57.90 Pulmonary emboli I27.82 Acute cor pulmonale presence: unspecified Chronicity: chronic Pulmonary embolism type: unspecified Hypothyroidism E03.9 Hypothyroidism type: unspecified Hypertension I10 Hypertension type: essential hypertension Morbid obesity E66.01
[2019-11-23] MEDS: metoprolol tartrate 50 mg Tablet 100 MG PO (15:20)
== END 2019-11-23 16:10 | disposition home or self-care (01) ==
LOC: ER 04:32 → MEDSURG 04:54
PROVIDERS: Emergency Medicine; Admitting Provider Internal Medicine; Visit Provider Family Medicine
DX: S42.292A Other displaced fracture of upper end of left humerus, initial encounter for closed fracture (principal); S43.005A Unspecified dislocation of left shoulder joint, initial encounter; W19.XXXA Unspecified fall, initial encounter; I26.99 Other pulmonary embolism without acute cor pulmonale; C50.919 Malignant neoplasm of unspecified site of unspecified female breast; R06.00 Dyspnea, unspecified; G47.33 Obstructive sleep apnea (adult) (pediatric); Z99.89 Dependence on other enabling machines and devices; Z93.3 Colostomy status; E03.9 Hypothyroidism, unspecified; I10 Essential (primary) hypertension; D69.6 Thrombocytopenia, unspecified; Z79.01 Long term (current) use of anticoagulants; E66.01 Morbid (severe) obesity due to excess calories; Z68.42 Body mass index [BMI] 45.0-49.9, adult
CPT/HCPCS: 12345; 36415; 70450; 71045; 73030; 73060; 73200; 80048; 80053; 85025; 85610; 85730; 94660; 94664; 96361; 96374; 96375; 97760; 99283; 99285; G0378; J1644; J2270; J2405; J7030; J7799; L3670